=== PATIENT | male | born 1965 | race African-American/Black ===

== ENCOUNTER → 2017-01-31 | Outpatient (CLI) | payer BC | LOC: RAD 17:35 | DX: R06.2 Wheezing (principal) ==

== ENCOUNTER → 2019-08-04 | Outpatient (CLI) | payer BC ==
[2019-08-04 12:00] LABS: ALBUMIN 4.1 g/dL (3.5-5.0); POTASSIUM 4.2 mmol/L (3.5-5.1)
[2019-08-04 12:01] LABS: CALCIUM 9.3 mg/dL (8.3-10.5)
[2019-08-04 12:03] LABS: TOTAL PROTEIN 7.9 g/dL (6.4-8.3)
[2019-08-04 12:04] LABS: TOTAL BILIRUBIN 0.7 mg/dL (0.2-1.2)
[2019-08-04 12:18] LABS: EOS # 0.2 (0.04-0.40); EOS % 2.1 % (0.0-4.0); HEMATOCRIT 41.9 % (42.0-52.0); HEMOGLOBIN 13.4 g/dL (13.5-18.0); LYMPH# 2.6 (1.50-4.00); MEAN CORPUSCULAR HEMOGLOBIN 22 pg (27-31); MEAN CORPUSCULAR HGB CONC 32 g/dL (33-37); MEAN PLATELET VOLUME 9.2 fl (7.4-10.4); MONO # 0.6 (0.20-0.80); NEU # 3.8 (1.40-6.50); PLATELET COUNT 224 K/mm3 (130-400); RED CELL DISTRIBUTION WIDTH 16.9 % (11.5-14.5); URINE APPEARANCE CLEAR; URINE BILIRUBIN NEGATIVE (NEGATIVE); URINE BLOOD NEGATIVE (NEGATIVE); URINE COLOR YELLOW; URINE GLUCOSE NEGATIVE (NEGATIVE); URINE KETONE NEGATIVE (NEGATIVE); URINE LEUKOCYTE ESTERASE NEGATIVE (NEGATIVE); URINE NITRATE NEGATIVE (NEGATIVE); URINE PROTEIN(semi-quant) NEGATIVE (NEGATIVE); URINE UROBILINOGEN 4 mg/dL (NORMAL); URINE WBC 0-1 /hpf (0-3); WHITE BLOOD COUNT 7.2 K/mm3 (4.8-10.8)
[2019-08-04 12:19] LABS: MEAN CELL VOLUME 69 fl (78-100); URINE MUCUS PRESENT (NOT PRESENT)
== END ==
LOC: RAD 10:47 → LAB 10:47
PROVIDERS: Nurse Practitioner
DX: K82.8 Other specified diseases of gallbladder (principal)

== ENCOUNTER → 2019-11-16 | Outpatient (CLI) | payer OTHER ==
[2019-11-17 18:03] LABS: HEPATITIS B SURFACE ANTIBODY <2.0 (()); HEPATITIS B SURFACE ANTIGEN Negative (Negative); HEPATITIS C VIRUS ANTIBODY Negative (Negative)
== END ==
LOC: LAB 15:32
PROVIDERS: Nurse Practitioner
DX: Z77.21 Contact with and (suspected) exposure to potentially hazardous body fluids (principal)

== ENCOUNTER → 2020-01-03 | Outpatient (CLI) | payer OTHER ==
[2020-01-03 23:12] LABS: HEPATITIS B SURFACE ANTIGEN Negative (Negative)
[2020-01-03 23:13] LABS: HEPATITIS B SURFACE ANTIBODY <2.0 (()); HEPATITIS C VIRUS ANTIBODY Negative (Negative)
== END ==
LOC: LAB 08:43
PROVIDERS: Nurse Practitioner
DX: Z77.21 Contact with and (suspected) exposure to potentially hazardous body fluids (principal)

== ENCOUNTER → 2020-02-21 | Outpatient (CLI) | payer OTHER ==
[2020-02-21 22:07] LABS: HEPATITIS B SURFACE ANTIBODY <2.0 (()); HEPATITIS B SURFACE ANTIGEN Negative (Negative); HEPATITIS C VIRUS ANTIBODY Negative (Negative)
== END ==
LOC: LAB 09:32 → EDSTATUS 11:54
DX: Z77.21 Contact with and (suspected) exposure to potentially hazardous body fluids (principal)

== ENCOUNTER → 2020-05-16 | Outpatient (CLI) | payer OTHER ==
[2020-05-16 21:45] LABS: HEPATITIS B SURFACE ANTIBODY <2.0 (()); HEPATITIS B SURFACE ANTIGEN Negative (Negative); HEPATITIS C VIRUS ANTIBODY Negative (Negative)
== END ==
LOC: LAB 09:32
DX: Z77.21 Contact with and (suspected) exposure to potentially hazardous body fluids (principal)

== ENCOUNTER → 2020-11-29 | Outpatient (CLI) | payer BC | LOC: RAD 15:38 | DX: S60.222A Contusion of left hand, initial encounter (principal) ==

== ENCOUNTER → 2021-01-23 | Outpatient (CLI) | payer BC | LOC: RAD 10:02 | DX: R05.3 Chronic cough (principal) ==

== ENCOUNTER → 2021-03-06 | Outpatient (CLI) | payer BC | LOC: LAB 09:22 | DX: R07.9 Chest pain, unspecified (principal) ==

== ENCOUNTER → 2021-03-27 | Outpatient (CLI) | payer BC | LOC: RAD 07:15 | DX: R10.11 Right upper quadrant pain (principal) ==

== ENCOUNTER → 2021-07-05 | Outpatient (CLI) | payer BC | LOC: RAD 08:26 | DX: M16.0 Bilateral primary osteoarthritis of hip (principal) ==